=== PATIENT | male | born 1950 | race Caucasian/White ===

== ENCOUNTER 2018-05-30 09:47 | Inpatient (IN) | payer MEDICARE ==
[~2018-05-30] VITALS: Ht 182.9 cm; Wt 81.8 kg
[2018-05-30 15:16] VITALS: BP 129/71; PULSE 88; TEMP 97.5
[2018-05-30 18:06] VITALS: BP 101/85; PULSE 69; TEMP 98
[2018-05-30 18:29] LABS: HEMOGLOBIN 12.4 g/dl (13.5-18.0); MEAN CELL VOLUME 93 fl (80.0-100.0); MEAN CORPUSCULAR HEMOGLOBIN 31 pg (27.0-31.0); MEAN CORPUSCULAR HGB CONC 34 g/dl (33.0-37.0); PLATELET COUNT 178 K/mm3 (130-400); RED BLOOD COUNT 3.98 M/mm3 (4.20-5.60); REDCELL DISTRIBUTION WIDTH-CV 14.1 % (11.5-14.5)
[2018-05-30 18:32] LABS: PROTHROMBIN TIME 11.5 SECONDS (9.7-12.8)
[2018-05-30 18:34] LABS: PARTIAL THROMBOPLASTIN TIME 31.8 SECONDS (26.0-37.0)
[2018-05-30 18:36] LABS: HEMATOCRIT 36.9 % (42.0-52.0)
[2018-05-30 18:38] LABS: CALCIUM 8.7 mg/dL (8.4-10.2); CREATININE, serum 1.15 mg/dL (0.66-1.25); POTASSIUM 3.8 mmol/L (3.4-5.0)
[2018-05-30 19:55] VITALS: BP 149/72; PULSE 72; TEMP 98.3
[2018-05-30 21:47] VITALS: BP 132/72; PULSE 80; TEMP 98.3
[2018-05-30 23:53] VITALS: BP 128/70; PULSE 78; TEMP 98.1
[2018-05-31] VITALS (17 sets, daily range): BP systolic 108–170; BP diastolic 53–91; PULSE 55–81; TEMP 97.4–98.4
[2018-05-31 06:33] LABS: HEMOGLOBIN 11.3 g/dl (13.5-18.0); MEAN CELL VOLUME 92 fl (80.0-100.0); MEAN CORPUSCULAR HEMOGLOBIN 31 pg (27.0-31.0); MEAN CORPUSCULAR HGB CONC 34 g/dl (33.0-37.0); MEAN PLATELET VOLUME 9.1 fl (7.4-10.4); PLATELET COUNT 171 K/mm3 (130-400); RED BLOOD COUNT 3.66 M/mm3 (4.20-5.60); REDCELL DISTRIBUTION WIDTH-CV 14.1 % (11.5-14.5)
[2018-05-31 06:40] LABS: HEMATOCRIT 33.6 % (42.0-52.0)
[2018-05-31 07:01] LABS: CALCIUM 8.1 mg/dL (8.4-10.2); CREATININE, serum 0.82 mg/dL (0.66-1.25); POTASSIUM 3.8 mmol/L (3.4-5.0)
[2018-05-31 07:53] LABS: BAND 1 % (0-10); EOSINOPHIL 1 % (0-4); LYMPHOCYTE 29 % (20.0-51.0); NEUTROPHILS 65 % (42.0-75.2); PLATELET ESTIMATE NORMAL (NORMAL)
[2018-06-01 00:27] VITALS: BP 105/61; PULSE 55; TEMP 98.1
[2018-06-01 04:58] VITALS: BP 130/73; PULSE 63; TEMP 98.8
[2018-06-01 07:07] LABS: BASO % 0.5 % (0.0-2.0); EOS # 0.1 (0.0-0.7); EOS % 0.9 % (0-4.0); GRAN # 3.6 (1.4-6.5); GRAN % 63.5 % (42.2-75.2); HEMOGLOBIN 12.2 g/dl (13.5-18.0); LYMPH # 1.4 (1.2-3.4); LYMPH % 25.4 % (20.0-51.0); MEAN CELL VOLUME 94 fl (80.0-100.0); MEAN CORPUSCULAR HEMOGLOBIN 31 pg (27.0-31.0); MEAN CORPUSCULAR HGB CONC 33 g/dl (33.0-37.0); MEAN PLATELET VOLUME 9.2 fl (7.4-10.4); MONO # 0.5 (0.1-0.6); MONO % 9.2 % (1.7-9.3); PLATELET COUNT 216 K/mm3 (130-400); RED BLOOD COUNT 3.92 M/mm3 (4.20-5.60); REDCELL DISTRIBUTION WIDTH-CV 14.6 % (11.5-14.5)
[2018-06-01 07:08] VITALS: BP 152/82; PULSE 70; TEMP 97.3
[2018-06-01 07:08] LABS: HEMATOCRIT 36.7 % (42.0-52.0)
[2018-06-01 07:20] LABS: CALCIUM 8.6 mg/dL (8.4-10.2); CREATININE, serum 0.9 mg/dL (0.66-1.25); POTASSIUM 3.6 mmol/L (3.4-5.0)
[2018-06-01] MEDS ORDERED: LIPITOR20 MG PO (09:33)
[2018-06-01] MEDS ORDERED: BRILINTA90 MG PO (09:33)
[2018-06-01] MEDS ORDERED: NITROSTAT0.4 MG/TAB SL (09:34)
[2018-06-01] MEDS ORDERED: ASPIRIN E.C. 8181 MG PO (09:35)
[2018-06-01] MEDS ORDERED: LOPRESSOR 225 MG/TAB PO (09:35)
== END 2018-06-01 11:27 | disposition home or self-care (01) | DRG 247 ==
LOC: MEDICAL 09:47
PROVIDERS: Physician Assistant; Student in an Organized Health Care Education/Training Program
PROC: B2111ZZ Fluoroscopy of Multiple Coronary Arteries using Low Osmolar Contrast (ICD-10-PCS; principal; 2018-05-31)
PROC: 027034Z Dilation of Coronary Artery, One Artery with Drug-eluting Intraluminal Device, Percutaneous Approach (ICD-10-PCS; 2018-05-31)
PROC: 4A023N7 Measurement of Cardiac Sampling and Pressure, Left Heart, Percutaneous Approach (ICD-10-PCS; 2018-05-31)
DX: I25.110 Atherosclerotic heart disease of native coronary artery with unstable angina pectoris (principal); E87.1 Hypo-osmolality and hyponatremia; I47.1 Supraventricular tachycardia; Z87.891 Personal history of nicotine dependence; Z86.73 Personal history of transient ischemic attack (TIA), and cerebral infarction without residual deficits
CPT/HCPCS: 99222-AI; 99232-AI; C1725; C1769; C1874; C1887; C9600; J1644; J2060; J2250; J3010; J7030; Q9967